=== PATIENT | male | born 1955 | race Caucasian/White ===

== ENCOUNTER 2016-09-03 08:10 | Day surgery (SDC) | payer OTHER ==
[2016-08-29 09:44] VITALS: BMI 34.5
[~2016-09-03 08:10] MED LIST: LACTATED RINGERS 1,000 ML IV SCH; LIDOCAINE 1% 20 ML VIAL (10MG/ML) FOR IV START INTRADERMA PRN
[2016-09-03 08:57] VITALS: RESP 16; TEMP 97.9
[2016-09-03] MEDS ORDERED: MIDAZOLAM 2 MG/2 ML VIAL ONE (09:30)
[2016-09-03] MEDS ORDERED: PROPOFOL 10 MG/ML 20 ML VIAL IV ONE (09:30)
[2016-09-03] MEDS ORDERED: LIDOCAINE 1% INJ 10MG/ML (20 ML MDV) ONE (09:30)
--- NOTE | 2016-09-03 10:06 | P.PCN ---
Date of Procedure: 09/03/16 Procedure(s) Performed: Procedure: Colonoscopy and polypectomy. Preoperative diagnosis: Screening for neoplasia, patient has history of polyps and family history of colon cancer. Postoperative diagnosis: 1. Small sigmoid polyp snared but no large polyps or cancer. 2. Sigmoid diverticulosis with no evidence of acute diverticulitis or strictures. Preparation HalfLytely prep. Sedation was provided by anesthesia. Brief clinical history: The patient is a 61-year-old male who has family history of colon cancer in his dad and he has had several colonoscopies for screening in the past. His last exam was around 5 years ago. The patient had polyps removed in the past including one polyp on his last exam. At this time, he has no abdominal complaints, bleeding or anemia. Procedure: With the patient on his left lateral decubitus position and after informed consent and adequate sedation, the perianal area was inspected and it did not show any fissures or fistulas. There were no masses felt on digital rectal examination. The Olympus CFQ 160L video colonoscope was then inserted in the rectum in the usual fashion and advanced to the cecum. There were multiple diverticular orifices seen scattered in the sigmoid with no evidence of acute diverticulitis or strictures. In the proximal sigmoid, there was a small polyp which I snared and retrieved by suction but there were no large polyps or cancer. I retroflexed endoscope in the rectum before the endoscope was withdrawn. The patient tolerated the procedure well. Plan: The patient was reassured. Discussed dietary measures. With his family history and finding of polyps, I am recommending repeat exam in 5 years. He will follow up with you as planned.
[2016-09-03 10:31] VITALS: BP 120/79; PULSE 55
== END 2016-09-03 11:05 | disposition home or self-care (01) ==
LOC: ORWHC2ENDO 08:10
DX: Z12.11 Encounter for screening for malignant neoplasm of colon (principal); Z86.010 Personal history of colon polyps; Z80.0 Family history of malignant neoplasm of digestive organs; D12.5 Benign neoplasm of sigmoid colon; K57.30 Diverticulosis of large intestine without perforation or abscess without bleeding; I10 Essential (primary) hypertension; E78.5 Hyperlipidemia, unspecified; I25.10 Atherosclerotic heart disease of native coronary artery without angina pectoris; Z95.1 Presence of aortocoronary bypass graft; I25.2 Old myocardial infarction; Z79.899 Other long term (current) drug therapy
CPT/HCPCS: 88305; 45385; J2250; J2001; J2704; 99153

== ENCOUNTER 2017-03-20 05:38 | Inpatient (IN) | payer OTHER ==
[2017-03-20] MEDS ORDERED: SODIUM CHLORIDE 0.9% 1,000 ML IV STA (05:49)
[2017-03-20] MEDS ORDERED: SODIUM CHLORIDE 0.9% 500 ML IV STA (05:49)
[2017-03-20 06:14] LABS: Basophils % (A) 0 %; CH 30.8; CHCM 33.6; Eosinophils # (A) 0.2 k/uL (0-0.7); Eosinophils % (A) 2 %; HCT 46.3 % (39.0-53.0); HDW 2.52; Luc # (Auto) 0.13; Luc % (Auto) 2; Lymphocytes # (A) 1.8 k/uL (1.0-4.8); Lymphocytes % (A) 23 %; MCH 29.9 pg (25.0-35.0); MCHC 32.4 g/dL (31.0-37.0); MCV 92.2 fL (80.0-100.0); Mean Platelet Volume 8.1; Monocytes # (A) 0.4 k/uL (0-1.0); Monocytes % (A) 5 %; Neutrophils # (A) 5.2 k/uL (1.3-7.7); Neutrophils % (A) 68 %; RBC 5.02 m/uL (4.30-5.90); RDW 14.8 % (11.5-15.5); WBC 7.7 k/uL (3.8-10.6); WBC (Perox) 7.44
[2017-03-20 06:23] LABS: INR 1.1 (<1.2); Partial Thromboplastin Time 25.2 sec (22.0-30.0); Prothrombin Time 10.7 sec (9.0-12.0)
[2017-03-20 06:24] LABS: ALT 53 U/L (21-72); AST 42 U/L (17-59); Alkaline Phosphatase 136 U/L (38-126); Anion Gap 10 mmol/L; Blood Urea Nitrogen 13 mg/dL (9-20); Calcium 9.4 mg/dL (8.4-10.2); Carbon Dioxide 28 mmol/L (22-30); Chloride 104 mmol/L (98-107); Glucose 94 mg/dL (74-99); Magnesium 1.8 mg/dL (1.6-2.3); Non-African American GFR(MDRD) >60 (>60 ml/min/1.73 sqM); Phosphorous 4.1 mg/dL (2.5-4.5); Potassium 4.4 mmol/L (3.5-5.1); Sodium 142 mmol/L (137-145); Total Bilirubin 0.5 mg/dL (0.2-1.3); Total Protein 7.1 g/dL (6.3-8.2)
--- NOTE | 2017-03-20 06:26 | ED ---
General Adult HPI - General Chief complaint: Dizziness Stated complaint: fall,dizziness,numbness Time Seen by Provider: 03/20/17 05:46 Source: patient, family, RN notes reviewed, old records reviewed Mode of arrival: ambulatory - History of Present Illness Initial comments: This is a 61-year-old male here for evaluation of syncopal event. She has history of heart disease, history of stents, patient coming in with multiple syncopal episodes this morning, patient was having a shower and passed out in the shower, twice. He also passed out once his bedroom and maybe 1 more time. Patient denies chest pain or shortness of breath to feel lightheaded dizzy and weak. Patient denies any change in medications. Appetite has been normal - Related Data Home Medications Medication Instructions Recorded Confirmed Aspirin EC [Ecotrin] 325 mg PO DAILY 08/29/16 03/20/17 Atorvastatin [Lipitor] 40 mg PO HS 08/29/16 03/20/17 Calcium Carbonate/Vitamin D3 1 each PO DAILY 08/29/16 03/20/17 [Calcium 500-Vit D3 600 Tablet] Metoprolol Tartrate [Lopressor] 25 mg PO BID 08/29/16 03/20/17 Multivitamins, Thera [Multivitamin] 1 tab PO DAILY 08/29/16 03/20/17 [place]-3 Fatty Acids/Fish Oil [Fish 1 each PO BID 08/29/16 03/20/17 Oil 1,000 mg Softgel] Vitamin B 12(Dose Unknown) 1 tab PO DAILY 08/29/16 03/20/17 Vitamin D(Dose Unknown) 1 tab PO DAILY 08/29/16 03/20/17 Allergies Allergy/AdvReac Type Severity Reaction Status Date / Time No Known Allergies Allergy Verified 03/20/17 05:51 Review of Systems ROS Statement: Those systems with pertinent positive or pertinent negative responses have been documented in the HPI. ROS Other: All systems not noted in ROS Statement are negative. Past Medical History Past Medical History: Hyperlipidemia, Hypertension, Myocardial Infarction ([place]) Additional Past Medical History / Comment(s): bradycardia, Last Myocardial Infarction Date:: 2003 History of Any Multi-Drug Resistant Organisms: None Reported Past Surgical History: Appendectomy, Coronary Bypass/CABG, Heart Catheterization Additional Past Surgical History / Comment(s): vasectomy, karly hip and pelvis surgery from injury(plate), skin graft index finger left hand Past Anesthesia/Blood Transfusion Reactions: No Reported Reaction Past Psychological History: No Psychological Hx Reported Smoking Status: Former smoker Past Alcohol Use History: None Reported Past Drug Use History: None Reported - Past Family History Father Family Medical History: Cancer General Exam General appearance: alert, in no apparent distress Head exam: Present: atraumatic, normocephalic, normal inspection Eye exam: Present: normal appearance, PERRL, EOMI. Absent: scleral icterus, conjunctival injection, periorbital swelling ENT exam: Present: normal exam, mucous membranes moist Neck exam: Present: normal inspection. Absent: tenderness, meningismus, lymphadenopathy Respiratory exam: Present: normal lung sounds bilaterally. Absent: respiratory distress, wheezes, rales, rhonchi, stridor Cardiovascular Exam: Present: normal rhythm, bradycardia, normal heart sounds. Absent: systolic murmur, diastolic murmur, rubs, gallop, clicks GI/Abdominal exam: Present: soft, normal bowel sounds. Absent: distended, tenderness, guarding, rebound, rigid Extremities exam: Present: normal inspection, full ROM, normal capillary refill. Absent: tenderness, pedal edema, joint swelling, calf tenderness Back exam: Present: normal inspection Neurological exam: Present: alert, oriented X3, CN II-XII intact Psychiatric exam: Present: normal affect, normal mood Skin exam: Present: warm, dry, intact, normal color. Absent: rash Course Vital Signs 03/20/17 05:45 Temperature 98.7 F Pulse Rate 47 L Respiratory 16 Rate Blood Pressure 173/81 O2 Sat by Pulse 97 Oximetry - Reevaluation(s) Reevaluation #1: 03/20/17 06:51 Patient states he feels improved but does note that his heart rate is lower than normal EKG Findings - EKG Comments: EKG Findings:: EKG shows sinus bradycardia rate 45, [place] 174, QRS 90, QTC 378 Medical Decision Making - Medical Decision Making 58 female in the ER for evaluation today. Comes in with evaluation regarding multiple syncopal episodes syncopal 3-4 times. Patient is here in the ER currently bradycardic. History of heart disease with stent. Patient will be admitted for cardiac observation - Lab Data Result diagrams: 03/20/17 05:58 03/20/17 05:58 Lab Results 03/20/17 03/20/17 03/20/17 Range/Units 05:58 05:58 05:58 WBC 7.7 (3.8-10.6) k/uL RBC 5.02 (4.30-5.90) m/uL Hgb 15.0 (13.0-17.5) gm/dL Hct 46.3 (39.0-53.0) % MCV 92.2 (80.0-100.0) fL MCH 29.9 (25.0-35.0) pg MCHC 32.4 (31.0-37.0) g/dL RDW 14.8 (11.5-15.5) % Plt Count 197 (150-450) k/uL Neutrophils % 68 % Lymphocytes % 23 % Monocytes % 5 % Eosinophils % 2 % Basophils % 0 % Neutrophils # 5.2 (1.3-7.7) k/uL Lymphocytes # 1.8 (1.0-4.8) k/uL Monocytes # 0.4 (0-1.0) k/uL Eosinophils # 0.2 (0-0.7) k/uL Basophils # 0.0 (0-0.2) k/uL PT (9.0-12.0) sec INR (<1.2) APTT (22.0-30.0) sec Sodium 142 (137-145) mmol/L Potassium 4.4 (3.5-5.1) mmol/L Chloride 104 (98-107) mmol/L Carbon Dioxide 28 (22-30) mmol/L Anion Gap 10 mmol/L BUN 13 (9-20) mg/dL Creatinine 0.67 (0.66-1.25) mg/dL Est GFR (MDRD) Af Amer >60 (>60 ml/min/1.73 sqM) Est GFR (MDRD) Non-Af >60 (>60 ml/min/1.73 sqM) Glucose 94 (74-99) mg/dL Calcium 9.4 (8.4-10.2) mg/dL Phosphorus 4.1 (2.5-4.5) mg/dL Magnesium 1.8 (1.6-2.3) mg/dL Total Bilirubin 0.5 (0.2-1.3) mg/dL AST 42 (17-59) U/L ALT 53 (21-72) U/L Alkaline Phosphatase 136 H (38-126) U/L Total Creatine Kinase 67 (55-170) U/L CK-MB (CK-2) 1.4 (0.0-2.4) ng/mL CK-MB (CK-2) Rel Index 2.1 Troponin I <0.012 (0.000-0.034) ng/mL Total Protein 7.1 (6.3-8.2) g/dL Albumin 4.0 (3.5-5.0) g/dL 03/20/17 Range/Units 05:58 WBC (3.8-10.6) k/uL RBC (4.30-5.90) m/uL Hgb (13.0-17.5) gm/dL Hct (39.0-53.0) % MCV (80.0-100.0) fL MCH (25.0-35.0) pg MCHC (31.0-37.0) g/dL RDW (11.5-15.5) % Plt Count (150-450) k/uL Neutrophils % % Lymphocytes % % Monocytes % % Eosinophils % % Basophils % % Neutrophils # (1.3-7.7) k/uL Lymphocytes # (1.0-4.8) k/uL Monocytes # (0-1.0) k/uL Eosinophils # (0-0.7) k/uL Basophils # (0-0.2) k/uL PT 10.7 (9.0-12.0) sec INR 1.1 (<1.2) APTT 25.2 (22.0-30.0) sec Sodium (137-145) mmol/L Potassium (3.5-5.1) mmol/L Chloride (98-107) mmol/L Carbon Dioxide (22-30) mmol/L Anion Gap mmol/L BUN (9-20) mg/dL Creatinine (0.66-1.25) mg/dL Est GFR (MDRD) Af Amer (>60 ml/min/1.73 sqM) Est GFR (MDRD) Non-Af (>60 ml/min/1.73 sqM) Glucose (74-99) mg/dL Calcium (8.4-10.2) mg/dL Phosphorus (2.5-4.5) mg/dL Magnesium (1.6-2.3) mg/dL Total Bilirubin (0.2-1.3) mg/dL AST (17-59) U/L ALT (21-72) U/L Alkaline Phosphatase (38-126) U/L Total Creatine Kinase (55-170) U/L CK-MB (CK-2) (0.0-2.4) ng/mL CK-MB (CK-2) Rel Index Troponin I (0.000-0.034) ng/mL Total Protein (6.3-8.2) g/dL Albumin (3.5-5.0) g/dL Disposition Clinical Impression: Bradycardia, Syncope Disposition: ADMITTED IP TO THIS HOSP Condition: Serious Referrals: Ivan Quintero MD [Primary Care Provider] - 1-2 days
[2017-03-20 06:35] LABS: Creatine Kinase 67 U/L (55-170)
[2017-03-20 06:48] LABS: Creatine Kinase MB 1.4 ng/mL (0.0-2.4); Troponin I <0.012 ng/mL (0.000-0.034)
[2017-03-20] MEDS ORDERED: ASPIRIN 81 MG CHEW PO STA (06:49)
[2017-03-20] MEDS ORDERED: NITROGLYCERIN SL TABS 0.4 MG TAB SUBLINGUAL PRN (06:49)
[2017-03-20] MEDS: ENOXAPARIN 40 MG/0.4 ML SYRINGE SQ SCH (08:43)
[2017-03-20] MEDS: SODIUM CHLORIDE 0.9% 1,000 ML IV SCH ×2 (08:44→18:39)
--- NOTE | 2017-03-20 10:04 | P.CRDCN ---
History of Present Illness Consult date: 03/20/17 Chief complaint: Dizziness and lightheadedness History of present illness: This is a pleasant 61-year-old gentleman who sees Dr. KAYLIN Hernandez as an outpatient with a known history of CAD and prior CABG 4 in 2003, obesity, hypertension, and dyslipidemia presented to the emergency room complaining of dizziness and lightheadedness. He was in his usual state of health until about 3 days ago when he started experiencing these episodes and he felt he was about to lose his consciousness but he did not have any syncope. He did not have any symptoms of chest pain or discomfort, exertional dyspnea, orthopnea, or PND. That the patient has been maintaining sinus rhythm with a sinus bradycardia with a heart rate in the 40s during his hospitalization and during the ER stay. He is receiving metoprolol at home as an outpatient. The EKG showed sinus bradycardia without any significant ST or T-wave abnormalities. The patient is going to be admitted to the hospital. We will hold the metoprolol. Continue monitor the heart rate. Obtain an echocardiogram was Doppler. Follow-up with the serial cardiac enzymes to rule out any acute coronary event. Past Medical History Past Medical History: Hyperlipidemia, Hypertension, Myocardial Infarction ([place]) Additional Past Medical History / Comment(s): bradycardia, Last Myocardial Infarction Date:: 2003 History of Any Multi-Drug Resistant Organisms: None Reported Past Surgical History: Appendectomy, Coronary Bypass/CABG, Heart Catheterization Additional Past Surgical History / Comment(s): vasectomy, karly hip and pelvis surgery from injury(plate), skin graft index finger left hand Past Anesthesia/Blood Transfusion Reactions: No Reported Reaction Past Psychological History: No Psychological Hx Reported Smoking Status: Former smoker Past Alcohol Use History: None Reported Past Drug Use History: None Reported - Past Family History Father Family Medical History: Cancer Medications and Allergies Home Medications Medication Instructions Recorded Confirmed Type Aspirin EC [Ecotrin] 325 mg PO DAILY 08/29/16 03/20/17 History Atorvastatin [Lipitor] 40 mg PO HS 08/29/16 03/20/17 History Calcium Carbonate/Vitamin D3 1 tab PO DAILY 08/29/16 03/20/17 History [Calcium 500-Vit D3 600 Tablet] Metoprolol Tartrate [Lopressor] 25 mg PO BID 08/29/16 03/20/17 History Multivitamins, Thera [Multivitamin] 1 tab PO DAILY 08/29/16 03/20/17 History [place]-3 Fatty Acids/Fish Oil [Fish 1 cap PO BID 08/29/16 03/20/17 History Oil 1,000 mg Softgel] Vitamin B 12(Dose Unknown) 1 tab PO DAILY 08/29/16 03/20/17 History Vitamin D(Dose Unknown) 1 tab PO DAILY 08/29/16 03/20/17 History Allergies Allergy/AdvReac Type Severity Reaction Status Date / Time No Known Allergies Allergy Verified 03/20/17 07:17 Physical Exam Vitals: Vital Signs Temp Pulse Resp BP Pulse Ox 03/20/17 09:00 60 18 129/60 99 03/20/17 08:00 46 L 20 143/87 97 03/20/17 07:02 47 L 16 169/79 97 03/20/17 05:45 98.7 F 47 L 16 173/81 97 Intake and Output 03/19/17 03/20/17 03/20/17 22:59 06:59 14:59 Other: Weight 113.398 kg - Constitutional General appearance: no acute distress - Respiratory Respiratory: bilateral: CTA - Cardiovascular Rhythm: regular Heart sounds: normal: S1, S2 Results 03/20/17 05:58 03/20/17 05:58 Cardiac Enzymes 03/20/17 03/20/17 Range/Units 05:58 05:58 AST 42 (17-59) U/L CK-MB (CK-2) 1.4 (0.0-2.4) ng/mL Troponin I <0.012 (0.000-0.034) ng/mL Coagulation 03/20/17 Range/Units 05:58 PT 10.7 (9.0-12.0) sec APTT 25.2 (22.0-30.0) sec CBC 03/20/17 Range/Units 05:58 WBC 7.7 (3.8-10.6) k/uL RBC 5.02 (4.30-5.90) m/uL Hgb 15.0 (13.0-17.5) gm/dL Hct 46.3 (39.0-53.0) % Plt Count 197 (150-450) k/uL Comprehensive Metabolic Panel 03/20/17 Range/Units 05:58 Sodium 142 (137-145) mmol/L Potassium 4.4 (3.5-5.1) mmol/L Chloride 104 (98-107) mmol/L Carbon Dioxide 28 (22-30) mmol/L BUN 13 (9-20) mg/dL Creatinine 0.67 (0.66-1.25) mg/dL Glucose 94 (74-99) mg/dL Calcium 9.4 (8.4-10.2) mg/dL AST 42 (17-59) U/L ALT 53 (21-72) U/L Alkaline Phosphatase 136 H (38-126) U/L Total Protein 7.1 (6.3-8.2) g/dL Albumin 4.0 (3.5-5.0) g/dL Current Medications Generic Name Dose Route Start Last Admin Trade Name Freq PRN Reason Stop Dose Admin Aspirin 325 mg 03/21/17 09:00 Aspirin PO DAILY THOMAS Enoxaparin Sodium 40 mg 03/20/17 09:00 03/20/17 08:43 Lovenox SQ 40 mg DAILY THOMAS Administration Sodium Chloride 1,000 mls @ 100 mls/hr 03/20/17 07:00 03/20/17 08:44 Saline 0.9% IV 100 mls/hr .Q10H THOMAS Administration Nitroglycerin 0.4 mg 03/20/17 06:49 Nitrostat SUBLINGUAL Q5M PRN Chest Pain Intake and Output 03/19/17 03/20/17 03/20/17 22:59 06:59 14:59 Other: Weight 113.398 kg 03/20/17 05:58 03/20/17 05:58 Assessment and Plan Plan: This is a pleasant 61-year-old gentleman who presented to the hospital was dizziness and lightheadedness and was found to have symptomatic bradycardia. Hold the metoprolol. Obtain an echocardiogram was Doppler. Monitor the heart rate. Obtain serial cardiac enzymes and follow-up with the patient.
[2017-03-20 12:51] LABS: Creatine Kinase 51 U/L (55-170)
[2017-03-20 13:04] LABS: Creatine Kinase MB 1.1 ng/mL (0.0-2.4); Troponin I <0.012 ng/mL (0.000-0.034)
[2017-03-20 17:37] LABS: Creatine Kinase 54 U/L (55-170)
[2017-03-20 17:50] LABS: Troponin I <0.012 ng/mL (0.000-0.034)
[2017-03-20] MEDS ORDERED: ACETAMINOPHEN TAB 325 MG TAB PO PRN (18:48)
[2017-03-21 02:30] LABS: Cholesterol 106 mg/dL (<200); HDL Cholesterol 17 mg/dL (40-60)
[2017-03-21] MEDS: SODIUM CHLORIDE 0.9% 1,000 ML IV SCH ×3 (05:32→23:50)
--- NOTE | 2017-03-21 08:01 | ECHOF ---
Referral Reason:bradycardia MEASUREMENTS -------- HEIGHT: 177.8 cm WEIGHT: 113.4 kg BP: 129/60 RVIDd: 3.0 cm (< 3.3) IVSd: 1.5 cm (0.6 - 1.1) LVIDd: 5.4 cm (3.9 - 5.3) LVPWd: 1.4 cm (0.6 - 1.1) IVSs: 1.8 cm LVIDs: 3.9 cm LVPWs: 1.7 cm LA Diam: 3.7 cm (2.7 - 3.8) LAESV Index (A-L): 32.77 ml/m Ao Diam: 3.6 cm (2.0 - 3.7) AV Cusp: 2.5 cm (1.5 - 2.6) MV EXCURSION: 17.007 mm (> 18.000) MV EF SLOPE: 47 mm/s (70 - 150) EPSS: 1.0 cm MV E Doug: 0.99 m/s MV DecT: 196 ms MV A Doug: 0.88 m/s MV E/A Ratio: 1.13 RAP: 5.00 mmHg RVSP: 23.88 mmHg FINDINGS -------- Sinus rhythm. This was a technically difficult study with suboptimal views. The left ventricular size is normal. There is moderate concentric left ventricular hypertrophy. Overall left ventricular systolic function is mildly impaired with, an EF between 45 - 50 %. Apical septum LV wall motion is hypokinetic. The right ventricle is normal in size and function. LA is midly dilated 29-33ml/m2. The right atrium is normal in size. 1.5mg of Definity was utilized for enhancement of images There is mild aortic valve sclerosis. Mild mitral annular calcification present. Mild tricuspid regurgitation present. Right ventricular systolic pressure is normal at < 35 mmHg. The pulmonic valve was not well visualized. The aortic root size is normal. IVC Not well visulized. There is no pericardial effusion. CONCLUSIONS -------- 1. Sinus rhythm. 2. There is mild aortic valve sclerosis. 3. Mild mitral annular calcification present. 4. Mild tricuspid regurgitation present. 5. Right ventricular systolic pressure is normal at < 35 mmHg. 6. The pulmonic valve was not well visualized. 7. The aortic root size is normal. 8. IVC Not well visulized. 9. There is no pericardial effusion. 10. This was a technically difficult study with suboptimal views. 11. The left ventricular size is normal. 12. There is moderate concentric left ventricular hypertrophy. 13. Overall left ventricular systolic function is mildly impaired with, an EF between 45 - 50 %. 14. Apical septum LV wall motion is hypokinetic. 15. The right ventricle is normal in size and function. 16. LA is midly dilated 29-33ml/m2. 17. 1.5mg of Definity was utilized for enhancement of images DAY CARE DIRECTOR: Kim Chu RDCS
[2017-03-21] MEDS: ENOXAPARIN 40 MG/0.4 ML SYRINGE SQ SCH (09:15)
[2017-03-21] MEDS: ASPIRIN 325 MG TAB PO SCH (09:16)
--- NOTE | 2017-03-21 15:14 | P.PN ---
Subjective Principal diagnosis: Dizziness and lightheadedness This is a pleasant 61-year-old gentleman who follows with Dr. Hernandez as an outpatient. He has a known history of coronary artery disease with prior bypass surgery, hypertension, obesity, hyperlipidemia. He presented to the emergency room with symptoms of dizziness and lightheadedness. Patient was found to be in a sinus bradycardia with a heart rate in the 40s. Patient states that his heart rate has been significantly low for quite some time. He did have a full workup in the office by Dr. Garcia patient was told at some point he may require a pacemaker. Patient was on a significant dose of beta yuri which was held by Dr. Albrecht. Heart rate today remains in the high 40s to low 50s. Patient has not yet been up ambulating. Blood pressure 130/70. Troponins were negative 3. TSH level 7.1. Patient states he feels mildly tired today, doesn't complain of any dizziness but has not yet been up ambulating in the hallway. He's been instructed to increase activity so we can monitor his heart rate with activity. Objective - Vital Signs Vital signs: Vital Signs Temp 98.1 F 03/21/17 09:10 Pulse 53 L 03/21/17 11:59 Resp 12 03/21/17 12:00 BP 131/74 03/21/17 11:59 Pulse Ox 96 03/21/17 11:59 Intake & Output 03/20/17 03/21/17 03/21/17 18:59 06:59 18:59 Intake Total 900 1040 Output Total 1050 Balance -150 1040 Weight 112.6 kg Intake: IV 900 Sodium Chloride 0.9% 1, 900 000 ml @ 100 mls/hr IV . Q10H STA Rx#:[id number] Intake, IV Titration 800 Amount Sodium Chloride 0.9% 1, 800 000 ml @ 100 mls/hr IV . Q10H THOMAS Rx#:[id number] Oral 240 Output: Urine 1050 Other: Voiding Method Toilet Toilet # Voids 3 - Exam PHYSICAL EXAMINATION: HEENT: [Head is atraumatic, normocephalic. Pupils equal, round. Neck is supple. There is no elevated jugular venous pressure.] HEART EXAMINATION: [Heart S1, S2 normal. No murmur or gallop heard.] CHEST EXAMINATION:[ Lungs are clear to auscultation and precussion. No chest wall tenderness is noted on palpation or with deep breathing.] ABDOMEN: [ Soft, nontender. Bowel sounds are heard. No organomegaly noted]. EXTREMITIES:[ 2+ peripheral pulses with no evidence of peripheral edema and no calf tenderness noted]. NEUROLOGIC [patient is awake, alert and oriented -3.] . - Labs CBC & Chem 7: 03/20/17 05:58 03/20/17 05:58 Labs: Abnormal Lab Results - Last 24 Hours (Table) 03/20/17 03/20/17 03/20/17 Range/Units 05:58 05:58 16:57 Total Creatine Kinase 54 L (55-170) U/L Triglycerides 180 H (<150) mg/dL HDL Cholesterol 17 L (40-60) mg/dL TSH 7.120 H (0.465-4.680) mIU/L Assessment and Plan (1) Symptomatic bradycardia Status: Acute (2) HTN (hypertension) Status: Acute (3) Hyperlipemia Status: Acute (4) Hx of CABG Status: Acute Plan: From cardiology's perspective, we'll continue to hold the beta yuri. TSH is elevated, recommend initiating thyroid medication. Continue to monitor having the patient ambulate in the hallway to evaluate his chronotropic response. Further recommendations to follow DNP note has been reviewed, I agree with a documented findings and plan of care. Patient was seen and examined.
--- NOTE | 2017-03-21 17:05 | P.PN ---
Subjective [id number] and was admitted for from syncope secondary to sinus bradycardia which is again secondary to beta yuri.. Sinus bradycardia is improving and patient artery disease and 53. Patient TSH is higher but T4 is normal patient may have subclinical hypothyroidism patient was started on levothyroxine 50 mg which she I believe is okay at this time. Patient apparently had proximal atrial fibrillation for which patient was started on beta yuri in the past. Cardiology wanted to monitor him 1 more day. Patient today in any chest pain, nausea, vomiting, dizziness, fever, dysuria. Objective - Vital Signs Vital signs: Vital Signs Temp 98.1 F 03/21/17 09:10 Pulse 53 L 03/21/17 11:59 Resp 12 03/21/17 12:00 BP 131/74 03/21/17 11:59 Pulse Ox 96 03/21/17 11:59 Intake & Output 03/20/17 03/21/17 03/21/17 18:59 06:59 18:59 Intake Total 900 1040 Output Total 1050 Balance -150 1040 Weight 112.6 kg Intake: IV 900 Sodium Chloride 0.9% 1, 900 000 ml @ 100 mls/hr IV . Q10H STA Rx#:[id number] Intake, IV Titration 800 Amount Sodium Chloride 0.9% 1, 800 000 ml @ 100 mls/hr IV . Q10H THOMAS Rx#:[id number] Oral 240 Output: Urine 1050 Other: Voiding Method Toilet Toilet # Voids 3 - Exam PHYSICAL EXAMINATION: GENERAL: The patient is alert and oriented x3, not in any acute distress. Well developed, well nourished. HEENT: Pupils are round and equally reacting to light. EOMI. No scleral icterus. No conjunctival pallor. Normocephalic, atraumatic. No pharyngeal erythema. No thyromegaly. CARDIOVASCULAR: S1 and S2 present. No murmurs, rubs, or gallops. PULMONARY: Chest is clear to auscultation, no wheezing or crackles. ABDOMEN: Soft, nontender, nondistended, normoactive bowel sounds. No palpable organomegaly. MUSCULOSKELETAL: No joint swelling or deformity. EXTREMITIES: No cyanosis, clubbing, or pedal edema. NEUROLOGICAL: Gross neurological examination did not reveal any focal deficits. SKIN: No rashes. - Labs CBC & Chem 7: 03/20/17 05:58 08/09/17 05:58 Labs: Abnormal Lab Results - Last 24 Hours (Table) 03/20/17 03/20/17 03/20/17 Range/Units 05:58 05:58 16:57 Total Creatine Kinase 54 L (55-170) U/L Triglycerides 180 H (<150) mg/dL HDL Cholesterol 17 L (40-60) mg/dL TSH 7.120 H (0.465-4.680) mIU/L Assessment and Plan Plan: #1 syncope: Secondary to severe sinus bradycardia secondary to beta blockers which were dyspnea. #2 coronary artery disease with history of coronary artery bypass grafting in the past. #3 possible subclinical hypothyroidism for which patient was started on low- dose levothyroxine. #4 hypertension #5 hyperlipidemia
[2017-03-21] MEDS: ATORVASTATIN 40 MG TAB PO SCH (20:17)
[2017-03-22] MEDS: LEVOTHYROXINE 25 MCG TAB PO SCH (06:23)
[2017-03-22] MEDS: ENOXAPARIN 40 MG/0.4 ML SYRINGE SQ SCH (09:57)
[2017-03-22] MEDS: ASPIRIN 325 MG TAB PO SCH (09:57)
--- NOTE | 2017-03-22 11:11 | P.PN ---
Subjective Principal diagnosis: Symptomatic bradycardia This is a pleasant 61-year-old gentleman who sees Dr. KAYLIN Hernandez as an outpatient with a known history of CAD and prior CABG 4 in 2003, obesity, hypertension, and dyslipidemia presented to the emergency room complaining of dizziness and lightheadedness. He was in his usual state of health until about 3 days ago when he started experiencing these episodes and he felt he was about to lose his consciousness but he did not have any syncope. He did not have any symptoms of chest pain or discomfort, exertional dyspnea, orthopnea, or PND. That the patient has been maintaining sinus rhythm with a sinus bradycardia with a heart rate in the 40s during his hospitalization and during the ER stay. He is receiving metoprolol at home as an outpatient. The EKG showed sinus bradycardia without any significant ST or T-wave abnormalities. We held the metoprolol. Also would check the TSH and that came in to be elevated consistent with hypothyroidism. The patient was started on Synthroid and the heart rate has been slightly better. I recommended keeping the patient for additional 24 hours. Objective - Vital Signs Vital signs: Vital Signs Temp 97.4 F L 03/22/17 09:50 Pulse 65 03/22/17 09:50 Resp 18 03/22/17 09:50 BP 138/76 03/22/17 09:50 Pulse Ox 98 03/22/17 09:50 Intake & Output 03/21/17 03/22/17 03/22/17 18:59 06:59 18:59 Intake Total 1040 Output Total 1000 Balance 1040 -1000 Weight 111.8 kg Intake: Intake, IV Titration 800 Amount Sodium Chloride 0.9% 1, 800 000 ml @ 100 mls/hr IV . Q10H THOMAS Rx#:[id number] Oral 240 Output: Urine 1000 Other: Voiding Method Toilet Toilet Toilet # Voids 2 0 - Constitutional General appearance: Present: no acute distress - Respiratory Respiratory: bilateral: CTA - Cardiovascular Rhythm: regular Heart sounds: normal: S1, S2 - Labs CBC & Chem 7: 03/20/17 05:58 03/20/17 05:58 Labs: Abnormal Lab Results - Last 24 Hours (Table) 03/20/17 Range/Units 05:58 TSH 7.120 H (0.465-4.680) mIU/L Assessment and Plan Plan: This is a pleasant 61-year-old gentleman who presented to the hospital was dizziness and lightheadedness and was found to have symptomatic bradycardia. The patient's heart rate has been better after we started him on Synthroid.
[2017-03-22] MEDS: amLODIPine 5 MG TAB PO SCH (12:19)
--- NOTE | 2017-03-22 17:11 | P.DS ---
Providers Date of admission: 03/20/17 06:49 Attending physician: Ivan Quintero Consults: 03/20/17 06:49 Consult Physician Urgent Consulting Provider: Stalin Hartmann Consult Reason/Comments: jeramy Do you want consulting provider notified?: Yes Primary care physician: Ivan Quintero Hospital Course: 61-year-old and was admitted for from syncope secondary to sinus bradycardia which is again secondary to beta yuri.. Sinus bradycardia is improving and patient artery disease and 53. Patient TSH is higher but T4 is normal patient may have subclinical hypothyroidism patient was started on levothyroxine 50 mg which she I believe is okay at this time. Patient apparently had proximal atrial fibrillation for which patient was started on beta yuri in the past. Cardiology wanted to monitor him 1 more day. 03/22/2017 Excessively counseled the appropriate way of checking blood pressure. Patient has on and off episodes of increased blood pressure his least blood pressure is 120 systolic because of which I do not believe he'll need any more antihypertensive medications. I believe patient can be discharged and patient will be discharged from my perspective to follow with Dr. Quinetro as an outpatient. Patient today in any chest pain, nausea, vomiting, dizziness, fever, dysuria. PHYSICAL EXAMINATION: GENERAL: The patient is alert and oriented x3, not in any acute distress. Well developed, well nourished. HEENT: Pupils are round and equally reacting to light. EOMI. No scleral icterus. No conjunctival pallor. Normocephalic, atraumatic. No pharyngeal erythema. No thyromegaly. CARDIOVASCULAR: S1 and S2 present. No murmurs, rubs, or gallops. PULMONARY: Chest is clear to auscultation, no wheezing or crackles. ABDOMEN: Soft, nontender, nondistended, normoactive bowel sounds. No palpable organomegaly. MUSCULOSKELETAL: No joint swelling or deformity. EXTREMITIES: No cyanosis, clubbing, or pedal edema. NEUROLOGICAL: Gross neurological examination did not reveal any focal deficits. SKIN: No rashes. #1 syncope: Secondary to severe sinus bradycardia secondary to beta blockers which were dyspnea. #2 coronary artery disease with history of coronary artery bypass grafting in the past. #3 possible subclinical hypothyroidism for which patient was started on low- dose levothyroxine. #4 hypertension #5 hyperlipidemia Patient Condition at Discharge: Serious Plan - Discharge Summary New Discharge Prescriptions: New Levothyroxine Sodium [Levo-T] 50 mcg PO DAILY #30 tablet Discontinued Metoprolol Tartrate [Lopressor] 25 mg PO BID No Action Bedford-3 Fatty Acids/Fish Oil [Fish Oil 1,000 mg Softgel] 1 cap PO BID Aspirin EC [Ecotrin] 325 mg PO DAILY Vitamin D(Dose Unknown) 1 tab PO DAILY Vitamin B 12(Dose Unknown) 1 tab PO DAILY Atorvastatin [Lipitor] 40 mg PO HS Multivitamins, Thera [Multivitamin] 1 tab PO DAILY Calcium Carbonate/Vitamin D3 [Calcium 500-Vit D3 600 Tablet] 1 tab PO DAILY Discharge Medication List Aspirin EC [Ecotrin] 325 mg PO DAILY 08/29/16 [History] Atorvastatin [Lipitor] 40 mg PO HS 08/29/16 [History] Calcium Carbonate/Vitamin D3 [Calcium 500-Vit D3 600 Tablet] 1 tab PO DAILY [History] Multivitamins, Thera [Multivitamin] 1 tab PO DAILY 08/29/16 [History] Bedford-3 Fatty Acids/Fish Oil [Fish Oil 1,000 mg Softgel] 1 cap PO BID 08/29/16 [ History] Vitamin B 12(Dose Unknown) 1 tab PO DAILY 08/29/16 [History] Vitamin D(Dose Unknown) 1 tab PO DAILY 08/29/16 [History] Levothyroxine Sodium [Levo-T] 50 mcg PO DAILY #30 tablet 03/22/17 [Rx] Follow up Appointment(s)/Referral(s): Ivan Quintero MD [Primary Care Provider] - 3 Days Patient Instructions/Handouts: Levothyroxine (By mouth), Syncope (DC), Hypothyroidism (DC), Bradycardia (DC) Discharge Disposition: HOME SELF-CARE
[2017-03-22] MEDS: SODIUM CHLORIDE 0.9% 1,000 ML IV SCH (20:09)
[2017-03-22] MEDS: ATORVASTATIN 40 MG TAB PO SCH (20:10)
[2017-03-23] MEDS: SODIUM CHLORIDE 0.9% 1,000 ML IV SCH (06:42)
[2017-03-23] MEDS: LEVOTHYROXINE 25 MCG TAB PO SCH (06:43)
[2017-03-23] MEDS: ASPIRIN 325 MG TAB PO SCH (08:53)
[2017-03-23] MEDS: ENOXAPARIN 40 MG/0.4 ML SYRINGE SQ SCH (08:54)
[2017-03-23] MEDS: amLODIPine 5 MG TAB PO SCH (08:54)
[2017-03-23] MEDS ORDERED: DIGOXIN 125 MCG TAB PO SCH (09:00)
--- NOTE | 2017-03-23 11:17 | P.PN ---
Subjective Principal diagnosis: Symptomatic bradycardia This is a pleasant 61-year-old gentleman who sees Dr. KAYLIN Hernandez as an outpatient with a known history of CAD and prior CABG 4 in 2003, obesity, hypertension, and dyslipidemia presented to the emergency room complaining of dizziness and lightheadedness. He was diagnosed with symptomatic bradycardia. He was receiving beta yuri which was stopped and he was started on calcium channel yuri with Norvasc. Beside that the TSH was checked and came in to be elevated internal medicine physician assistant was hypothyroidism. Once the patient started on Synthroid the heart rate has improved. Currently the patient has been maintaining normal heart rate and normal blood pressure. From the cardiovascular standpoint of view, he can be discharged home. Objective - Vital Signs Vital signs: Vital Signs Temp 97.6 F 03/23/17 08:52 Pulse 80 03/23/17 08:52 Resp 16 03/23/17 08:52 BP 117/61 03/23/17 08:52 Pulse Ox 96 03/23/17 08:52 Intake & Output 03/22/17 03/23/17 03/23/17 18:59 06:59 18:59 Intake Total 480 236 Output Total 450 Balance 30 236 Weight 112.2 kg Intake: Oral 480 236 Output: Urine 450 Other: Voiding Method Toilet Toilet Toilet # Voids 4 1 - Constitutional General appearance: Present: no acute distress - Respiratory Respiratory: bilateral: CTA - Cardiovascular Rhythm: regular Heart sounds: normal: S1, S2 - Labs CBC & Chem 7: 03/20/17 05:58 03/20/17 05:58 Assessment and Plan Plan: This is a pleasant 61-year-old gentleman who presented to the hospital was dizziness and lightheadedness and was found to have symptomatic bradycardia. The patient's heart rate has been better after we started him on Synthroid. The patient can be discharged home.
[2017-03-23 15:35] VITALS: BP 141/73; PULSE 85; RESP 20; TEMP 98.6
--- NOTE | 2017-03-26 12:49 | DS ---
DATE OF SERVICE: 03/23/2017 FINAL DIAGNOSES: 1. Syncope, possibly secondary to severe sinus bradycardia secondary to beta blockers and as well as hypothyroidism subclinical. 2. Coronary artery disease. 3. Hypertension. 4. Hyperlipidemia. DISCHARGE DISPOSITION: The patient will be discharged in stable condition with guarded prognosis. Cardiology cleared the patient for discharge. HISTORY OF PRESENT ILLNESS: A 61-year-old gentleman with past medical history of multiple medical problems as mentioned before being followed by Dr. Quintero in the outpatient setting was admitted with syncope. The patient had severe sinus bradycardia. Patient also on beta-blockers which were stopped and thyroid supplementation initiated for subclinical hypothyroidism. On exam vitals are stable. CARDIOVASCULAR: S1, S2. ABDOMEN: Soft. NERVOUS SYSTEM: No focal deficits. Heart rate in the 80s. So the discharge advice is: 1. Diet is cardiac. 2. Activity limited until follow up. 3. Follow up with Dr. Quintero in 2 to 4 days. 4. Follow with Cardiology as advised. 5. Follow up TSH in the outpatient setting. MEDICATIONS: 1. Norvasc 5 mg p.o daily. 2. Ecotrin 325 mg daily. 3. Lipitor 40 mg q.h.s 4. Calcium with vitamin D 1 p.o daily. 5. Levothyroxine 50 mcg p.o daily. 6. Multivitamins 1 p.o. daily. 8. Vitamin B complex as previously. MTDD
== END 2017-03-23 17:19 | disposition home or self-care (01) | DRG 310 ==
LOC: EC 05:38 → 6SEL 06:49
PROVIDERS: ADMIT Family Medicine; ATTEND Family Medicine
DX: R00.1 Bradycardia, unspecified (principal); I10 Essential (primary) hypertension; I48.0 Paroxysmal atrial fibrillation; E03.9 Hypothyroidism, unspecified; I25.10 Atherosclerotic heart disease of native coronary artery without angina pectoris; E78.5 Hyperlipidemia, unspecified; E66.9 Obesity, unspecified; I25.2 Old myocardial infarction; Z79.82 Long term (current) use of aspirin; Z79.899 Other long term (current) drug therapy; Z87.891 Personal history of nicotine dependence; Z95.1 Presence of aortocoronary bypass graft
CPT/HCPCS: 36415; 80053; 80061; 82550; 82553; 83735; 84100; 84439; 84443; 84484; 85025; 85610; 85730; 93005; 93306; 94760; 96360; 96361; 96372; 99285

== ENCOUNTER → 2017-12-18 | Outpatient (CLI) | payer OTHER ==
[2017-12-18 09:55] LABS: HCT 46.7 % (39.0-53.0); MCHC 32.2 g/dL (31.0-37.0); Mean Platelet Volume 7.7; Platelet Count 172 k/uL (150-450); RBC 5.18 m/uL (4.30-5.90); WBC 7.4 k/uL (3.8-10.6)
[2017-12-18 10:11] LABS: Anion Gap 14 mmol/L; Blood Urea Nitrogen 13 mg/dL (9-20); Carbon Dioxide 25 mmol/L (22-30); Chloride 106 mmol/L (98-107); Potassium 4.5 mmol/L (3.5-5.1); Sodium 145 mmol/L (137-145)
== END | disposition home or self-care (01) ==
LOC: LABPAT 09:30
PROVIDERS: ATTEND Internal Medicine Interventional Cardiology
DX: Z01.812 Encounter for preprocedural laboratory examination (principal); I25.10 Atherosclerotic heart disease of native coronary artery without angina pectoris
CPT/HCPCS: 36415; 80051; 82565; 84520; 85027

== ENCOUNTER → 2018-01-13 | Day surgery (SDC) | payer OTHER ==
[2018-01-01 15:30] VITALS: BMI 34.4
[~2018-01-13] MED LIST changes: +ALPRAZolam 0.25 MG TAB PO PRN; +ALPRAZolam 0.5 MG TAB PO PRN; +ASPIRIN 325 MG TAB PO STA; +ASPIRIN 81 MG ONE; +ATORVASTATIN 80 MG TAB PO STA; +IOPAMIDOL-370 100ML BTL INJ ONE; -LACTATED RINGERS 1,000 ML IV SCH; -LIDOCAINE 1% 20 ML VIAL (10MG/ML) FOR IV START INTRADERMA PRN; +LIDOCAINE 2% INJ 20 MG/ML (20 ML MDV) ONE; +LIDOCAINE 2% INJ 20 MG/ML SQ ONE; +MIDAZOLAM 2 MG/2 ML VIAL IVP ONE; +MIDAZOLAM 2 MG/2 ML VIAL ONE; +NITROGLYCERIN 1000MCG/10ML SYRINGE INTRACORON ONE; +NITROGLYCERIN SL TABS 0.4 MG TAB SUBLINGUAL PRN; +SODIUM CHLORIDE 0.9% 1,000 ML IV SCH; +SODIUM CHLORIDE 0.9% 1,000 ML in EMPTY BAG 1 BAG IV ONE; +diphenhydrAMINE 50 MG/ML 1 ML VIAL IVP ONE; +diphenhydrAMINE 50 MG/ML 1 ML VIAL ONE
[2018-01-13 10:08] VITALS: RESP 18
[2018-01-13 13:42] VITALS: TEMP 98.2
--- NOTE | 2018-01-13 15:20 | CC ---
CARDIAC CATHETERIZATION REPORT DATE OF SERVICE: 01/13/2018. PROCEDURE: Left heart catheterization, coronary angiography, selective injection of bypass grafts and left ventriculography. PERFORMED BY: Dr. Shyann Hernandez. CLINICAL INFORMATION: Mr. Michel Galo is a 62-year-old gentleman with a known history of hypertension, hyperlipidemia, ischemic heart disease with a prior myocardial infarction involving the inferior wall with total occlusion of RCA and a bypass surgery performed in 2013 with a VENTURA to LAD, separate vein graft placed to the diagonal and obtuse marginal 1. A free radial artery graft was placed to the obtuse marginal 2. Because of increasing symptoms of shortness of breath suggestive of angina, he was advised a stress test which revealed inferior wall fixed defect with hypokinesia as well as anteroapical area of hypokinesia with partial reversibility raising the possibility of progression of CAD. He was advised cardiac catheterization after due discussion regarding risks, benefits, and options. PROCEDURE NOTE: Under local anesthesia and strict aseptic precautions, a 6-Frisian introducer was placed in the right femoral artery. The patient's vessels were heavily calcified. A long 6- Frisian sheath was placed. Using a standard left Sujit catheter, I performed selective coronary angiography of the left system and using a Roberto catheter, I performed selective coronary angiography of the washoe RCA, two vein grafts, free radial artery graft to the obtuse marginal 2 and also used the same catheter for a VENTURA injection. A pigtail catheter was used to check pressures and LV-gram was performed with this catheter. The sheath was then taken out manually. Manual compression was applied and he was sent to the room in a stable condition and results were discussed with the patient and family. ANESTHESIA: Moderate conscious sedation time was 52 minutes. Patient's oxygen saturation, hemodynamics were monitored closely. CARDIAC CATHETERIZATION FINDINGS: The left ventricle end-diastolic pressure was about 14 to 15 mmHg without any gradient across the aortic valve. CORONARY ANGIOGRAPHY FINDINGS: LEFT MAIN CORONARY ARTERY: Short patent disease-free vessel that bifurcates into LAD and circumflex. LEFT ANTERIOR DESCENDING CORONARY ARTERY: This vessel has significant disease in the mid-segment of anywhere from 60%-80%. It gives off several septal branches in the proximal portion. The left anterior descending coronary artery is having some competitive flow filling from the VENTURA, but the entire mid segment is highly diseased of anywhere from 70%-80%. A major diagonal branch is also seen. This diagonal branch has about a 50%-60% lesion noted. This diagonal branch does not have any competitive flow. LEFT POSTERIOR CIRCUMFLEX CORONARY ARTERY: A single vessel is seen and this seems to be an obtuse marginal that is free of significant disease, but the total circumflex is not even seen as a flush occlusion, but the circumflex had at least 2 bypass grafts placed. RIGHT CORONARY ARTERY: This vessel is a recanalized vessel. In the distal portion, there is a bridging collaterals and has a tight lesion before bifurcation into PDA and PLV. RCA is a territory which already had a myocardial infarction and this was not grafted during his bypass surgery. This vessel is recanalized, has bridging collaterals with a tight significant lesion before just before bifurcation. SAPHENOUS VEIN GRAFT TO THE OBTUSE MARGINAL 1: This graft appears to be totally occluded, seen as a stump. SAPHENOUS VEIN GRAFT TO THE DIAGONAL BRANCH OF LAD: This appears to be totally occluded, seen as a stump. A FREE RADIAL ARTERY GRAFT TO THE OBTUSE MARGINAL BRANCH OF CIRCUMFLEX: This graft is widely patent, its original course and insertion site and opacified area of obtuse marginal is also free of significant disease, has minor irregularities but it also fills antegrade. There is a lesion noted in the antegrade portion of this obtuse marginal. The graft is looking healthy and has no significant disease. LEFT INTERNAL MAMMARY ARTERY GRAFT TO LAD: This graft is widely patent in its origin, course and insertion site. Beyond insertion, the washoe LAD has a fairly tight area of narrowing noted and this is at least a 70%-80% eccentric in location, best seen in the CONNER cranial projection and the lesion is more accentuated and appears to be of a fair caliber when after nitroglycerin that was given. Beyond the lesion, the caliber of the vessel decreases and it runs all the way to the apex supplying a sizable amount of myocardium. LEFT VENTRICULOGRAM: This was performed in 30-degree CONNER projection, revealed left ventricle is of normal size which is enlarged to a mild extent with inferobasal akinesia, anteroapical hypokinesia, ejection fraction of 40%. There is mild mitral regurgitation noted. FINAL IMPRESSION: This patient has a right dominant system. Recanalized RCA with previous infarction not grafted. LAD has a long area of disease in the midportion competitively filled by the VENTURA. The diagonal has a independent 70%-80% lesion and the graft to the diagonal is occluded. Obtuse marginal branch is single obtuse marginal from the washoe circulation is patent. The vein graft to the first obtuse marginal and vein graft to the diagonal is occluded. Free radial artery graft to the second obtuse marginal is widely patent. VENTURA to LAD is patent with a washoe LAD disease of at least 70%-80% eccentric best seen in CONNER cranial projection. Ejection fraction is 40% with inferobasal akinesia and anteroapical hypokinesia. RECOMMENDATION: For now, we will pursue medical therapy and I will add Imdur 60 mg daily. However, patient will benefit from PCI performed through the washoe LAD. I will discuss this in great detail in the office. For now we will pursue medical therapy, discharge the patient. The findings and possible PCI and/or surgery were discussed with the patient and . I will make a definitive decision after due discussion in the office. ALLI / ESVINN: [id number] /
[2018-01-13 16:46] VITALS: PULSE 56
[2018-01-13 17:53] VITALS: BP 132/64
== END ==
LOC: CATHCVL 09:18
PROVIDERS: ATTEND Internal Medicine Interventional Cardiology
DX: I25.10 Atherosclerotic heart disease of native coronary artery without angina pectoris (principal); I25.810 Atherosclerosis of coronary artery bypass graft(s) without angina pectoris; I25.82 Chronic total occlusion of coronary artery; R94.39 Abnormal result of other cardiovascular function study; Z95.1 Presence of aortocoronary bypass graft; E03.9 Hypothyroidism, unspecified; I49.5 Sick sinus syndrome; G47.33 Obstructive sleep apnea (adult) (pediatric); E78.00 Pure hypercholesterolemia, unspecified; I25.2 Old myocardial infarction; I10 Essential (primary) hypertension; I42.9 Cardiomyopathy, unspecified; E66.9 Obesity, unspecified; Z68.34 Body mass index [BMI] 34.0-34.9, adult; Z82.49 Family history of ischemic heart disease and other diseases of the circulatory system; Z79.82 Long term (current) use of aspirin; Z79.890 Hormone replacement therapy; Z79.899 Other long term (current) drug therapy; Z87.891 Personal history of nicotine dependence
CPT/HCPCS: 93459; C1894 ×2; C1769 ×2; J2001; J2250; J1200; Q9967

== ENCOUNTER → 2018-01-20 | Outpatient (CLI) | payer OTHER ==
[2018-01-20 09:41] LABS: HCT 43.8 % (39.0-53.0); HGB 14.3 gm/dL (13.0-17.5); MCH 29.2 pg (25.0-35.0); MCHC 32.5 g/dL (31.0-37.0); MCV 89.8 fL (80.0-100.0); Mean Platelet Volume 7.4; Platelet Count 206 k/uL (150-450); RBC 4.88 m/uL (4.30-5.90); RDW 14.6 % (11.5-15.5); WBC 6.4 k/uL (3.8-10.6)
[2018-01-20 10:12] LABS: Anion Gap 13 mmol/L; Blood Urea Nitrogen 14 mg/dL (9-20); Calcium 8.4 mg/dL (8.4-10.2); Carbon Dioxide 22 mmol/L (22-30); Chloride 108 mmol/L (98-107); Glucose 101 mg/dL (74-99); Potassium 4.1 mmol/L (3.5-5.1); Sodium 143 mmol/L (137-145)
== END | disposition home or self-care (01) ==
LOC: LABWHC1 09:24
PROVIDERS: ATTEND Internal Medicine Interventional Cardiology
DX: I25.10 Atherosclerotic heart disease of native coronary artery without angina pectoris (principal)
CPT/HCPCS: 36415; 80048; 85027

== ENCOUNTER 2018-01-24 06:22 | Day surgery (SDC) | payer OTHER ==
[2018-01-20 16:18] VITALS: BMI 34.4
[~2018-01-24 06:22] MED LIST changes: -ALPRAZolam 0.25 MG TAB PO PRN; -ALPRAZolam 0.5 MG TAB PO PRN; -ASPIRIN 81 MG ONE; -ATORVASTATIN 80 MG TAB PO STA; -IOPAMIDOL-370 100ML BTL INJ ONE; -LIDOCAINE 2% INJ 20 MG/ML (20 ML MDV) ONE; -LIDOCAINE 2% INJ 20 MG/ML SQ ONE; -MIDAZOLAM 2 MG/2 ML VIAL IVP ONE; -MIDAZOLAM 2 MG/2 ML VIAL ONE; -NITROGLYCERIN 1000MCG/10ML SYRINGE INTRACORON ONE; -NITROGLYCERIN SL TABS 0.4 MG TAB SUBLINGUAL PRN; -SODIUM CHLORIDE 0.9% 1,000 ML IV SCH; -diphenhydrAMINE 50 MG/ML 1 ML VIAL IVP ONE; -diphenhydrAMINE 50 MG/ML 1 ML VIAL ONE
[2018-01-24] MEDS ORDERED: MIDAZOLAM 2 MG/2 ML VIAL IVP ONE (07:53)
[2018-01-24] MEDS ORDERED: diphenhydrAMINE 50 MG/ML 1 ML VIAL IVP ONE (07:53)
[2018-01-24] MEDS ORDERED: LIDOCAINE 2% INJ 20 MG/ML SQ ONE (07:57)
[2018-01-24] MEDS ORDERED: fentaNYL (PF) 50 MCG/ML 2 ML AMP IVP ONE (07:58)
[2018-01-24] MEDS ORDERED: BIVALIRUDIN BOLUS 250 MG/50 ML IV ONE (08:12)
[2018-01-24] MEDS ORDERED: BIVALIRUDIN 250 MG in SODIUM CHLORIDE 0.9% 50 ML IV ONE ×2 (08:13→08:36)
[2018-01-24] MEDS ORDERED: IOPAMIDOL-370 100ML BTL INJ ONE ×2 (08:26→09:15)
[2018-01-24] MEDS: NITROGLYCERIN 1000MCG/10ML SYRINGE INTRACORON ONE ×2 (09:11→09:16)
[2018-01-24] MEDS ORDERED: MORPHINE SULFATE 4MG/4ML SYRG IVP ONE (09:24)
[2018-01-24] MEDS ORDERED: TICAGRELOR 90 MG TAB PO ONE (09:26)
[2018-01-24] MEDS ORDERED: IOPAMIDOL-370 50ML BTL INJ ONE (09:28)
[2018-01-24] MEDS ORDERED: ZOLPIDEM 5 MG TAB PO PRN (09:40)
[2018-01-24] MEDS ORDERED: ATROPINE SULFATE 0.1 MG/ML 10ML SYRINGE IV PRN (09:40)
[2018-01-24] MEDS ORDERED: NITROGLYCERIN SL TABS 0.4 MG TAB SUBLINGUAL PRN (09:40)
[2018-01-24] MEDS ORDERED: RX INFO: IV CONTRAST WAS GIVEN 1 EACH MISC MISCELLANE PRN (09:40)
[2018-01-24] MEDS ORDERED: MAG HYDROX/AL HYDROX/SIMETH 30 ML CUP PO PRN (09:40)
[2018-01-24] MEDS: SODIUM CHLORIDE 0.9% 1,000 ML IV SCH ×2 (10:04→23:05)
--- NOTE | 2018-01-24 11:40 | PTCA ---
PERCUTANEOUSTRANS CORORONARY ANGIOGRAPHY DATE OF SERVICE: 01/24/2018 PROCEDURE: PTCA and stenting of mid LAD performed through the nikolski LAD approach and patient had a functioning VENTURA and the lesion was distal to the VENTURA insertion site. PERFORMED BY: Dr. Shyann Hernandez. Moderate conscious sedation time was 92 minutes. The patient administered a combination of Versed and fentanyl and morphine. He also had Benadryl given. CLINICAL INFORMATION: Mr. Michel Galo is a 62-year-old gentleman who has a known history of CAD, prior aortocoronary bypass surgery with a VENTURA to LAD and separate vein graft to the diagonal and obtuse marginal 1 with a free radial artery graft obtuse marginal 2. Patient had a recent cardiac cath because of anteroapical reversible defect. Cardiac catheterization revealed that his VENTURA to LAD was patent, but there was an independent lesion in the LAD beyond the insertion site of at least 70% - 80% calcified. The vein graft to the obtuse marginal 1 and vein graft to the diagonal were occluded. The free radial artery graft to the second obtuse marginal was patent. The nikolski LAD was patent, but highly diseased before the VENTURA insertion site. Patient's VENTURA was quite tortuous. He was advised PCI of mid LAD through the nikolski approach and this would be a technically difficult procedure. I discussed the risks, benefits and options with the patient and family and brought him in for the procedure electively. PROCEDURE NOTE: Under local anesthesia and strict aseptic precautions, a 6-Urdu introducer was placed in the left femoral artery. I used a Voda 3.5 guide to cannulate the left coronary artery. A whisper wire was used to cross the LAD lesion. Wire was kept in the distal LAD. I used a 2.5 caliber 12 mm trek balloon and dilated the lesion within the LAD beyond the insertion site of the VENTURA. However, I had difficulty bringing in the stent because of tortuosity and tight lesions located proximal to the VENTURA insertion site. I used a 2.5 caliber NC Trek balloon and dilated proximal to the insertion site and then I used a 2.25 caliber NC Trek balloon to dilate a very a tight lesion at the second septal branch. After these two were dilated, I was able to then advance a 2.75 caliber 12 mm long Xience stent and deployed this at the lesion within the LAD beyond the VENTURA insertion site. There was heavy calcification and the distal half of the stent was not well expanded. I then used a 3.0 caliber 8 mm NC Trek balloon and I dilated up to 16 atmospheres. There was modest improvement. I then switched over to a 3.25 caliber NC Trek balloon and dilated the distal half of the stented area up to 16 atmospheres. There was significant improvement. Excellent angiographic appearance and flow was noted. However, there was a 10% residual narrowing still in the lesion. I then took the wire out and switched over to a Roberto catheter and did antegrade injections to the VENTURA and I visualized that the lesion had no more than 10% narrowing with remarkably improved angiographic appearance and flow. Patient received Angiomax bolus and infusion as per protocol and he also received 180 mg of Brilinta orally. The sheath was taken out and a Perclose device used to secure hemostasis and he was sent to the room in stable condition. A very good angiographic result without complication was achieved and results were discussed with the patient and and family. I expect he will be discharged tomorrow if he remains stable and I will see him in the office on Saturday at 10:45 am. MMODL / IJN: [id number] /
--- NOTE | 2018-01-24 11:46 | LTR ---
DATE OF SERVICE: 01/24/2018 RE: Michel Galo Dear Dr. Quintero; Thank you for the opportunity to participate in the care of Mr. Galo. Please find enclosed my detailed PTCA report for your records. I am pleased to report to you that he had a good angiographic result. I expect he will be discharged in the next 24 hours if he remains stable. Thank you for your referral and please call for questions. With kindest regards. Sincerely yours, MD ALLI Horton / JANET: [id number] /
[2018-01-24] MEDS ORDERED: ACETAMINOPHEN TAB 325 MG TAB PO PRN (15:44)
[2018-01-24] MEDS ORDERED: NON-FORMULARY DRUG (Fish Oil/Dha/Epa [Fish Oil 1,200 Mg Fish Oil] 1 EACH) PO SCH (21:00)
[2018-01-24] MEDS ORDERED: ATORVASTATIN 80 MG TAB PO SCH (21:00)
[2018-01-25] MEDS ORDERED: LEVOTHYROXINE 75 MCG TAB PO SCH (06:30)
[2018-01-25 06:41] LABS: Basophils % (A) 1 %; Eosinophils # (A) 0.2 k/uL (0-0.7); Eosinophils % (A) 3 %; HCT 40.1 % (39.0-53.0); HGB 13.4 gm/dL (13.0-17.5); Lymphocytes # (A) 1.4 k/uL (1.0-4.8); Lymphocytes % (A) 21 %; MCHC 33.3 g/dL (31.0-37.0); MCV 90.1 fL (80.0-100.0); Mean Platelet Volume 7.3; Monocytes # (A) 0.3 k/uL (0-1.0); Monocytes % (A) 5 %; Neutrophils # (A) 4.4 k/uL (1.3-7.7); Neutrophils % (A) 68 %; Platelet Count 174 k/uL (150-450); RBC 4.45 m/uL (4.30-5.90); RDW 15.2 % (11.5-15.5); WBC 6.4 k/uL (3.8-10.6)
[2018-01-25 06:53] LABS: Anion Gap 8 mmol/L; Blood Urea Nitrogen 12 mg/dL (9-20); Calcium 8.4 mg/dL (8.4-10.2); Carbon Dioxide 24 mmol/L (22-30); Chloride 108 mmol/L (98-107); Glucose 95 mg/dL (74-99); Potassium 4.2 mmol/L (3.5-5.1); Sodium 140 mmol/L (137-145)
--- NOTE | 2018-01-25 08:17 | DS ---
DISCHARGE SUMMARY DATE OF ADMISSION: 01/24/2018. DATE OF DISCHARGE: 01/25/2018. DIAGNOSIS: Unstable angina with history of prior bypass surgery. HISTORY: Mr. Galo was brought in electively for PTCA and stenting of mid LAD through an akiak LAD which had a significant lesion before the VENTURA insertion site. VENTURA was patent and the disease was located beyond the insertion site of the VENTURA. The procedure was performed uneventfully from the left femoral approach. Stenting of the LAD was performed going through the akiak LAD. The result was very good with a resistance of less than 10% with remarkably improvement in angiographic appearance and flow. This was a very heavily calcified lesion requiring very high pressures. Postprocedure course was uneventful. He is asymptomatic. Doing well. Labs and EKGs are good. His left groin is clean and dry with a good pulse. Discharge instructions regarding activity and diet were given and patient will be seen by me in the office on the Saturday. He is advised to call me sooner if there are any questions, concerns or problem. I have advised him not to return to work and do limited activities of daily living. This morning he is doing very well without any symptoms. His blood pressure is 128/70, pulse rate is 60 per minute. S1-S2 heard normally. Lungs are clear. Abdomen and lower extremity exam unchanged. Left groin is clean and dry with a good pulse. EKG revealed sinus mechanism with anterior ST changes which are not new. Patient will be discharged today and I will see him in the office on the . Discharge instructions regarding activity, diet and medications were given. MMODL / IJN: [id number] /
[2018-01-25] MEDS ORDERED: ASPIRIN 81 MG PO SCH (09:00)
[2018-01-25] MEDS ORDERED: amLODIPine 5 MG TAB PO SCH (09:00)
[2018-01-25] MEDS ORDERED: ISOSORBIDE MONONITRATE ER 30 MG TAB.ER.24H PO SCH (09:00)
[2018-01-25] MEDS ORDERED: CYANOCOBALAMIN 500 MCG TAB PO SCH (09:00)
[2018-01-25] MEDS ORDERED: TICAGRELOR 90 MG TAB PO SCH (09:00)
[2018-01-25 10:43] VITALS: RESP 18
[2018-01-25] MEDS ORDERED: MULTIVITAMINS, THERA 1 EACH TAB PO SCH (12:00)
[2018-01-25] MEDS ORDERED: CHOLECALCIFEROL 1,000 UNIT TAB PO SCH (12:00)
[2018-01-25 12:26] VITALS: BP 108/59; PULSE 61; TEMP 97.4
== END 2018-01-25 13:38 | disposition home or self-care (01) ==
LOC: CATHCVL 06:22 → 6SEL 09:21 → CATHCVL 01-25 13:38
PROVIDERS: ATTEND Internal Medicine Interventional Cardiology
DX: I25.700 Atherosclerosis of coronary artery bypass graft(s), unspecified, with unstable angina pectoris (principal); I25.110 Atherosclerotic heart disease of native coronary artery with unstable angina pectoris; R00.1 Bradycardia, unspecified; I10 Essential (primary) hypertension; E78.5 Hyperlipidemia, unspecified; G47.33 Obstructive sleep apnea (adult) (pediatric); E03.9 Hypothyroidism, unspecified; I25.2 Old myocardial infarction; E66.9 Obesity, unspecified; Z68.34 Body mass index [BMI] 34.0-34.9, adult; Z82.49 Family history of ischemic heart disease and other diseases of the circulatory system; Z79.82 Long term (current) use of aspirin; Z79.890 Hormone replacement therapy; Z79.899 Other long term (current) drug therapy; Z87.891 Personal history of nicotine dependence
CPT/HCPCS: 94760; 80048; 85025; C9604; C1769 ×4; C1887 ×2; C1725 ×3; C1894 ×2; C1874; C1760; J2001; J2250; J1200; J3010; J0583; Q9967 ×2; J2270

== ENCOUNTER 2023-12-05 00:33 | Emergency (ER) | payer OTHER ==
[2023-12-05 01:01] LABS: Basophils # (A) 0.1 k/uL (0-0.2); Basophils % (A) 1 %; Eosinophils # (A) 0.1 k/uL (0-0.7); Eosinophils % (A) 2 %; HCT 42.3 % (39.0-53.0); HGB 14.1 gm/dL (13.0-17.5); Lymphocytes # (A) 1.7 k/uL (1.0-4.8); Lymphocytes % (A) 23 %; MCH 31.4 pg (25.0-35.0); MCHC 33.3 g/dL (31.0-37.0); MCV 94.2 fL (80.0-100.0); Mean Platelet Volume 8.5; Monocytes # (A) 0.5 k/uL (0-1.0); Monocytes % (A) 7 %; Neutrophils # (A) 4.7 k/uL (1.3-7.7); Neutrophils % (A) 65 %; Platelet Count 193 k/uL (150-450); RBC 4.49 m/uL (4.30-5.90); RDW 13.8 % (11.5-15.5); WBC 7.2 k/uL (3.8-10.6)
[2023-12-05 01:15] LABS: Partial Thromboplastin Time 24.8 sec (22.0-30.0); Prothrombin Time 10.9 sec (10.0-12.5)
--- NOTE | 2023-12-05 01:17 | ED ---
General Adult HPI - General Chief complaint: Fall Stated complaint: Fall Time Seen by Provider: 12/05/23 00:43 Source: patient Mode of arrival: EMS Limitations: physical limitation - History of Present Illness Initial comments: This patient is a 68-year-old man who arrives to have evaluation after he had fallen. Patient's fall was not witnessed. He was found lying on the floor with some facial swelling. -: hour(s) Location: head, face Consistency: constant Improves with: none Worsens with: none Associated Symptoms: denies other symptoms - Related Data Home Medications Medication Instructions Recorded Confirmed Calcium Carbonate/Vitamin D3 1 tab PO DAILY 08/29/16 01/24/18 [Calcium 500-Vit D3 15 Mcg (600 Iu)] Multivitamins, Thera [Multivitamin 1 tab PO DAILY 08/29/16 01/24/18 (formulary)] Aspirin EC [Ecotrin Low Dose] 81 mg PO DAILY 01/01/18 01/24/18 Cholecalciferol [Vitamin D3 (25 1,000 unit PO DAILY 01/01/18 01/24/18 Mcg = 1000 Iu)] Fish Oil/Dha/Epa [Fish Oil 1,200 1 each PO BID 01/01/18 01/24/18 mg Fish Oil] Levothyroxine Sodium [Synthroid] 75 mcg PO DAILY 01/01/18 01/24/18 Cyanocobalamin (Vitamin B-12) 1,000 mcg PO DAILY 01/20/18 01/24/18 [Vitamin B-12] Isosorbide Mononitrate ER [Imdur] 30 mg PO DAILY 01/20/18 01/24/18 Previous Rx's Medication Instructions Recorded amLODIPine [Norvasc] 5 mg PO DAILY tab 03/23/17 Atorvastatin [Lipitor] 40 mg PO HS #0 01/24/18 Mag Hydrox/Al Hydrox/Simeth 30 ml PO Q4HR PRN cup 01/24/18 [Maalox] Nitroglycerin Sl Tabs [Nitrostat] 0.4 mg SUBLINGUAL Q5M PRN #25 tab 01/24/18 Ticagrelor [Brilinta] 90 mg PO BID #60 tab 01/24/18 Allergies Allergy/AdvReac Type Severity Reaction Status Date / Time No Known Allergies Allergy Verified 12/05/23 00:44 Review of Systems ROS Statement: Those systems with pertinent positive or pertinent negative responses have been documented in the HPI. ROS Other: All systems not noted in ROS Statement are negative. Eyes: Denies: vision change ENT: Denies: ear pain, epistaxis Respiratory: Denies: cough, dyspnea Cardiovascular: Reports: syncope. 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 Last Myocardial Infarction Date:: 2003 History of Any Multi-Drug Resistant Organisms: None Reported Past Surgical History: Appendectomy, Coronary Bypass/CABG, Heart Cat heterization, Orthopedic Surgery, Tonsillectomy Additional Past Surgical History / Comment(s): 2003 CABG 4 vessel, vasectomy, pelvis surgery from injury- has plate in pelvis, skin graft index finger left hand, colonoscopies with benign polypectomies. LAST CARDIAC CATH 01/13/18 STENT TO LAD 01/24/18 Past Anesthesia/Blood Transfusion Reactions: No Reported Reaction Past Psychological History: No Psychological Hx Reported Smoking Status: Former smoker Past Alcohol Use History: None Reported Past Drug Use History: None Reported - Past Family History Father Family Medical History: Cancer Additional Family Medical History / Comment(s): colon Mother Family Medical History: Thyroid Disorder Additional Family Medical History / Comment(s): Mother at the age of 83 yrs. General Exam Limitations: physical limitation General appearance: alert, in no apparent distress, appears intoxicated Head exam: Present: normocephalic, other (Facial contusion) Eye exam: Present: normal appearance, PERRL, EOMI, periorbital tenderness. Absent: scleral icterus, conjunctival injection ENT exam: Present: normal exam Neck exam: Present: normal inspection, full ROM. Absent: tenderness, meningismus Respiratory exam: Present: normal lung sounds bilaterally. Absent: respiratory distress, wheezes, rales, rhonchi, stridor, accessory muscle use Cardiovascular Exam: Present: regular rate, normal rhythm, normal heart sounds. Absent: systolic murmur, diastolic murmur, rubs, gallop GI/Abdominal exam: Present: soft. Absent: distended, tenderness, guarding, rebound, rigid, mass Extremities exam: Present: normal inspection, normal capillary refill. Absent: pedal edema, calf tenderness Back exam: Present: normal inspection. Absent: CVA tenderness (R), CVA tenderness (L) Neurological exam: Present: alert, oriented X3, CN II-XII intact. Absent: motor sensory deficit Skin exam: Present: warm, dry, intact, normal color. Absent: rash Course Vital Signs 12/05/23 12/05/23 12/05/23 00:38 01:25 03:00 Temperature 98.3 F Pulse Rate 53 L 51 L Pulse Rate [ 52 L Precise Winder ] Respiratory 20 16 Rate Blood Pressure 146/78 132/68 O2 Sat by Pulse 98 99 Oximetry 12/05/23 04:15 Temperature 98.5 F Pulse Rate 53 L Pulse Rate [ Precise Winder ] Respiratory 16 Rate Blood Pressure 128/76 O2 Sat by Pulse 98 Oximetry EKG Findings - EKG Results: EKG: interpreted by ERMD, sinus rhythm, normal axis, normal QRS EKG shows: bradycardia (Rate 55 bpm) - Blocks, [place], Hypertrophy, ST Abn: Repolarization changes or abnormalities: nonspecific abnormality, ST segment, and/or T wave Medical Decision Making - Medical Decision Making The patient had chest x-ray that I interpreted as negative for acute infiltrate, pneumothorax, congestive heart failure The patient had CT scan of the brain and cervical spine with facial bones. I interpreted this as negative for acute bony injury and acute intracranial hemorrhage Was pt. sent in by a medical professional or institution ([facility], [employer] [facility] [facility], urgent care, hospital, or prison...) When possible be specific @ -[No] Did you speak to anyone other than the patient for history (EMS, parent, family, police, friend...)? What history was obtained from this source @ -[No] Did you review nursing and triage notes (agree or disagree)? Why? @ -[I reviewed and agree with nursing and triage notes] Were old charts reviewed (outside hosp., previous admission, EMS record, old EKG, old radiological studies, urgent care reports/EKG's, prison records)? Report findings @ -[No old charts were reviewed] Differential Diagnosis (chest pain, altered mental status, abdominal pain women, abdominal pain men, vaginal bleeding, weakness, fever, dyspnea, syncope, headache, dizziness, GI bleed, back pain, seizure, CVA, palpatations, mental health, musculoskeletal)? @ -[Differential Musculoskeletal Muscular strain, contusion, ligament sprain, fracture, arthritis, septic arthritis, bursitis, cellulitis, muscle spasm, nerve compression, DVT, arterial occlusion, herpes zoster, electrolyte abnormality, tumor.... This is not meant to be in all inclusive list EKG interpreted by me (3pts min.). Differential Syncope: Valvular disease, hypertrophic cardiomyopathy, pulmonary embolism, tamponade, tachycardia, bradycardia, CT, hypovolemia, hemorrhage, dissection, anemia, intracranial hemorrhage, seizure, hypoglycemia, carbon monoxide poisoning, this is not meant to be an all-inclusive list. @ -[I interpreted as above] X-rays interpreted by me (1pt min.). @ -[I interpreted as above CT interpreted by me (1pt min.). @ -[I interpreted as above U/S interpreted by me (1pt. min.). @ -[None done] What testing was considered but not performed or refused? (CT, X-rays, U/S, labs)? Why? @ -[None] What meds were considered but not given or refused? Why? @ -[None] Did you discuss the management of the patient with other professionals (professionals i.e. , PA, [employer], lab, RT, psych nurse, director social welfare, chronic care nurse, teacher, psychological operations officer, comp field case manager)? Give summary @ -[No] Was smoking cessation discussed for >3mins.? @ -[No] Was critical care preformed (if so, how long)? @ -[No] Were there social determinants of health that impacted care today? How? (Homelessness, low income, unemployed, alcoholism, drug addiction, transportation, low edu. Level, literacy, decrease access to med. care, nursing home, rehab)? @ -[No] Was there de-escalation of care discussed even if they declined (Discuss DNR or withdrawal of care, Hospice)? DNR status @ -[No] What co-morbidities impacted this encounter? (DM, HTN, Smoking, COPD, CAD, Cancer, CVA, ARF, Chemo, Hep., AIDS, mental health diagnosis, sleep apnea, morbid obesity)? @ -[None] Was patient admitted / discharged? Hospital course, mention meds given and route, prescriptions, significant lab abnormalities, going to OR and other pertinent info. @ -[Patient is a 68-year-old man who had syncopal episode and fell striking his face. CT scan of the brain was obtained as the patient was drinking and also takes Plavix. given the tenderness on the exam he had facial bone CT in addition to CT of the brain. The patient's workup is essentially normal. Discussed admission overnight for telemetry monitoring but the patient would like to go home. Discussed the return parameters as well as appropriate follow-up. Undiagnosed new problem with uncertain prognosis? @ -[No] Drug Therapy requiring intensive monitoring for toxicity (Heparin, Nitro, Insulin, Cardizem)? @ -[No] Were any procedures done? @ -[No] Diagnosis/symptom? @ -Acute syncopal episode Facial contusion Acute, or Chronic, or Acute on Chronic? @ -[Acute Uncomplicated (without systemic symptoms) or Complicated (systemic symptoms)? @ -[Uncomplicated Side effects of treatment? @ -[No] Exacerbation, Progression, or Severe Exacerbation? @ -[No] Poses a threat to life or bodily function? How? (Chest pain, USA, CT, pneumonia, PE, COPD, DKA, ARF, appy, cholecystitis, CVA, Diverticulitis, Homicidal, Suicidal, threat to staff... and all critical care pts) @ -[No] - Lab Data Result diagrams: 12/05/23 00:46 12/05/23 00:46 Lab Results 12/05/23 12/05/23 12/05/23 Range/Units 00:46 00:46 00:46 WBC 7.2 (3.8-10.6) k/uL RBC 4.49 (4.30-5.90) m/uL Hgb 14.1 (13.0-17.5) gm/dL Hct 42.3 (39.0-53.0) % MCV 94.2 (80.0-100.0) fL MCH 31.4 (25.0-35.0) pg MCHC 33.3 (31.0-37.0) g/dL RDW 13.8 (11.5-15.5) % Plt Count 193 (150-450) k/uL MPV 8.5 Neutrophils % 65 % Lymphocytes % 23 % Monocytes % 7 % Eosinophils % 2 % Basophils % 1 % Neutrophils # 4.7 (1.3-7.7) k/uL Lymphocytes # 1.7 (1.0-4.8) k/uL Monocytes # 0.5 (0-1.0) k/uL Eosinophils # 0.1 (0-0.7) k/uL Basophils # 0.1 (0-0.2) k/uL PT 10.9 (10.0-12.5) sec INR 1.0 (<1.2) APTT 24.8 (22.0-30.0) sec D-Dimer 0.44 (<0.60) mg/L FEU Sodium 140 (137-145) mmol/L Potassium 4.0 (3.5-5.1) mmol/L Chloride 107 (98-107) mmol/L Carbon Dioxide 23 (22-30) mmol/L Anion Gap 10 mmol/L BUN 18 (9-20) mg/dL Creatinine 0.59 L (0.66-1.25) mg/dL Est GFR (CKD-EPI)AfAm >90 (>60 ml/min/1.73 sqM) Est GFR (CKD-EPI)NonAf >90 (>60 ml/min/1.73 sqM) Glucose 110 H (74-99) mg/dL Calcium 8.6 (8.4-10.2) mg/dL Total Bilirubin 0.5 (0.2-1.3) mg/dL AST 48 (17-59) U/L ALT 38 (4-49) U/L Alkaline Phosphatase 121 (38-126) U/L Troponin I (0.000-0.034) ng/mL Total Protein 6.8 (6.3-8.2) g/dL Albumin 3.8 (3.5-5.0) g/dL Serum Alcohol 45 mg/dL 12/05/23 Range/Units 00:46 WBC (3.8-10.6) k/uL RBC (4.30-5.90) m/uL Hgb (13.0-17.5) gm/dL Hct (39.0-53.0) % MCV (80.0-100.0) fL MCH (25.0-35.0) pg MCHC (31.0-37.0) g/dL RDW (11.5-15.5) % Plt Count (150-450) k/uL MPV Neutrophils % % Lymphocytes % % Monocytes % % Eosinophils % % Basophils % % Neutrophils # (1.3-7.7) k/uL Lymphocytes # (1.0-4.8) k/uL Monocytes # (0-1.0) k/uL Eosinophils # (0-0.7) k/uL Basophils # (0-0.2) k/uL PT (10.0-12.5) sec INR (<1.2) APTT (22.0-30.0) sec D-Dimer (<0.60) mg/L FEU Sodium (137-145) mmol/L Potassium (3.5-5.1) mmol/L Chloride (98-107) mmol/L Carbon Dioxide (22-30) mmol/L Anion Gap mmol/L BUN (9-20) mg/dL Creatinine (0.66-1.25) mg/dL Est GFR (CKD-EPI)AfAm (>60 ml/min/1.73 sqM) Est GFR (CKD-EPI)NonAf (>60 ml/min/1.73 sqM) Glucose (74-99) mg/dL Calcium (8.4-10.2) mg/dL Total Bilirubin (0.2-1.3) mg/dL AST (17-59) U/L ALT (4-49) U/L Alkaline Phosphatase (38-126) U/L Troponin I <0.012 (0.000-0.034) ng/mL Total Protein (6.3-8.2) g/dL Albumin (3.5-5.0) g/dL Serum Alcohol mg/dL Disposition Clinical Impression: Syncope Disposition: HOME SELF-CARE Condition: Good Instructions (If sedation given, give patient instructions): Syncope (ED) Is patient prescribed a controlled substance at d/c from ED?: No Referrals: None,Stated [REFERRING] - 1-2 days Ivan Quintero MD [Primary Care Provider] - 1-2 days Humberto Hernandez MD [STAFF PHYSICIAN] - 1-2 days
[2023-12-05 01:22] LABS: ALT 38 U/L (4-49); AST 48 U/L (17-59); African American GFR (CKD) >90 (>60 ml/min/1.73 sqM); Albumin 3.8 g/dL (3.5-5.0); Alcohol 45 mg/dL; Alkaline Phosphatase 121 U/L (38-126); Anion Gap 10 mmol/L; Blood Urea Nitrogen 18 mg/dL (9-20); Calcium 8.6 mg/dL (8.4-10.2); Carbon Dioxide 23 mmol/L (22-30); Chloride 107 mmol/L (98-107); Glucose 110 mg/dL (74-99); Non-African American GFR(CKD) >90 (>60 ml/min/1.73 sqM); Sodium 140 mmol/L (137-145); Total Bilirubin 0.5 mg/dL (0.2-1.3); Total Protein 6.8 g/dL (6.3-8.2)
--- NOTE | 2023-12-05 02:06 | XR ---
EXAM: XR Chest, 1 View CLINICAL HISTORY: ITS.REASON XR Reason: syncope TECHNIQUE: Frontal view of the chest. COMPARISON: No relevant prior studies available. IMPRESSION: Cardiomegaly. Mild vascular congestion
--- NOTE | 2023-12-05 02:38 | CT ---
EXAM: CT Head and Maxillofacial Without Intravenous Contrast CLINICAL HISTORY: ITS.REASON CT Reason: fall injury TECHNIQUE: Axial computed tomography images of the head/brain and face without intravenous contrast. CTDI is 12.9 mGy and DLP is 395 mGy-cm. This CT exam was performed using one or more of the following dose reduction techniques: automated exposure control, adjustment of the mA and/or kV according to patient size, and/or use of iterative reconstruction technique. COMPARISON: No relevant prior studies available. FINDINGS: Bones/joints: No acute fracture. Soft tissues: Unremarkable. Sinuses: No acute sinusitis. Mastoid air cells: No mastoid effusion. Orbits: Unremarkable. IMPRESSION: No acute fracture.
--- NOTE | 2023-12-05 02:52 | CT ---
EXAM: CT Head Without Intravenous Contrast CLINICAL HISTORY: ITS.REASON CT Reason: fall injury TECHNIQUE: Axial computed tomography images of the head/brain without intravenous contrast. CTDI is 12.9 mGy and DLP is 395 mGy-cm. This CT exam was performed using one or more of the following dose reduction techniques: automated exposure control, adjustment of the mA and/or kV according to patient size, and/or use of iterative reconstruction technique. COMPARISON: No relevant prior studies available. FINDINGS: Brain: No hemorrhage or mass effect. Ventricles: No hydrocephalus. Bones/joints: Unremarkable. Soft tissues: Unremarkable. Sinuses: No air fluid level. Mastoid air cells: Clear. IMPRESSION: No acute hemorrhage, hydrocephalus, or mass effect. EXAM: CT Cervical Spine Without Intravenous Contrast CLINICAL HISTORY: ITS.REASON CT Reason: fall injury TECHNIQUE: Axial computed tomography images of the cervical spine without intravenous contrast. CTDI is 14.3 mGy and DLP is 405.8 mGy-cm. This CT exam was performed using one or more of the following dose reduction techniques: automated exposure control, adjustment of the mA and/or kV according to patient size, and/or use of iterative reconstruction technique. COMPARISON: No relevant prior studies available. FINDINGS: Vertebrae: No acute fracture in the cervical spine. Chronic mild superior end plate wedging of T1. Discs/spinal canal/neural foramina: degenerative changes. Soft tissues: No prevertebral swelling. IMPRESSION: No acute fracture or subluxation.
[2023-12-05 04:24] VITALS: BP 128/76; PULSE 53; RESP 16; TEMP 98.5
== END 2023-12-05 04:16 | disposition home or self-care (01) ==
LOC: EC 00:33
DX: S00.83XA Contusion of other part of head, initial encounter (principal); R55 Syncope and collapse; R00.1 Bradycardia, unspecified; Z87.891 Personal history of nicotine dependence; W19.XXXA Unspecified fall, initial encounter
CPT/HCPCS: 36415; 70450; 70486; 71045; 72125; 80053; 80320; 84484; 85025; 85379; 85610; 85730; 93005; 99285

== ENCOUNTER → 2025-01-19 | Outpatient (CLI) | payer MEDICARE ==
--- NOTE | 2025-01-19 07:28 | CT ---
EXAMINATION TYPE: CT brain wo con DATE OF EXAM: 01/19/2025 7:20 AM COMPARISON: None. CLINICAL INDICATION: Male, 69 years old with history of R41.3 OTHER AMNESIA, MEMORY ISSUES TECHNIQUE: CT of the brain is performed utilizing 3 mm thick sections through the posterior fossa and 3 mm thick sections through the remaining calvarium. Study is performed within 24 hours of arrival to the hospital. Contrast used: mL of , (none if empty) CT DLP: 1103.6 mGycm, Automated exposure control for dose reduction was used. FINDINGS: No abnormal hyperdensity is present to suggest an acute intracranial hemorrhage. No mass lesion is evident. No acute infarcts are evident. Ventricles and sulci are appropriate for the patient age. Paranasal sinuses and mastoid air cells within the [id number] are clear. IMPRESSION: 1. No acute intracranial process. Follow up MRI can be performed as clinically indicated. [facility], , 01/19/2025 7:26 AM
--- NOTE | 2025-01-19 08:18 | US ---
EXAMINATION TYPE: US carotid duplex BILAT DATE OF EXAM: 01/19/2025 COMPARISON: US 2012 CLINICAL INDICATION: Male, 69 years old with history of R41.3 MEMORY CHANGE; TECHNIQUE: Grayscale, color Doppler and spectral Doppler evaluation of the bilateral carotid systems and vertebral arteries. Indirect Doppler criteria was utilized. FINDINGS: EXAM MEASUREMENTS: RIGHT: Peak Systolic Velocity (PSV) cm/sec ----- Right CCA: 65.1 ----- Right ICA: 74.2 ----- Right ECA: 95.2 ICA/CCA ratio: 1.1 RIGHT: End Diastole cm/sec ----- Right CCA: 14.5 ----- Right ICA: 23.7 ----- Right ECA: 10.7 LEFT: Peak Systolic Velocity (PSV) cm/sec ----- Left CCA: 65.1 ----- Left ICA: 72.3 ----- Left ECA: 74.9 ICA/CCA ratio: 1.1 LEFT: End Diastole cm/sec ----- Left CCA: 12.9 ----- Left ICA: 21.0 ----- Left ECA: 8.2 VERTEBRALS (direction of flow): Right Vertebral: Antegrade Left Vertebral: Antegrade Rhythm: Normal IMPRESSION: Right: No hemodynamically significant stenosis. Left: No hemodynamically significant stenosis. Criteria for Assigning % of Stenosis / Diameter reduction (Estimation based on the indirect measurements of the internal carotid artery velocities (ICA PSV). 1. Normal (no stenosis)=ICA PSV < 180 cm/s: ratio < 2.0: ICA EDV<40 cm/s. 2. Less than 50% stenosis=ICA PSV < 180 cm/s: ratio < 2.0: ICA EDV<40 cm/s. 3. 50 to 69% stenosis=ICA PSV of 180 to 230 cm/s: ration 2.0 ? 4.0: ICA EDV 40-100 cm/s. PSV 125-180 cm/sec and ICA/CCA PSV Ratio ? 2.0 is also consistent with 50-69% stenosis 4. Greater than 70% stenosis to near occlusion= ICA PSV > 230 cm/s: ratio > 4.0: ICA EDV > 100 cm/s. 5. Near occlusion= ICA PSV velocities may be low or undetectable: variable ratio and ICA EDV. 6. Total occlusion=unable to detect flow. [facility], , 01/19/2025 8:16 AM
== END | disposition home or self-care (01) ==
LOC: RADCTMAIN 07:04
PROVIDERS: ATTEND Family Medicine
DX: R41.3 Other amnesia (principal)
CPT/HCPCS: 70450; 93880